=== PATIENT | female | born 1970 | race Caucasian/White ===

== ENCOUNTER 2016-08-01 09:51 | Day surgery (SDC) | payer BC ==
[2016-07-29 15:04] VITALS: BMI 21.3
[~2016-08-01 09:51] MED LIST: LACTATED RINGERS 1,000 ML IV SCH
[2016-08-01 10:51] VITALS: RESP 16; TEMP 97.5
[2016-08-01] MEDS ORDERED: LIDOCAINE 1% 20 ML VIAL (10MG/ML) FOR IV START INTRADERMA ONE (11:02)
[2016-08-01] MEDS ORDERED: PROPOFOL 10 MG/ML 20 ML VIAL IV ONE (12:15)
--- NOTE | 2016-08-01 12:26 | P.PCN ---
Date of Procedure: 08/01/16 Procedure(s) Performed: BRIEF HISTORY: Patient is a 46-year-old [place] female, scheduled for an elective colonoscopy as a part of evaluation of intermittent rectal bleeding for the last 1 month duration. PROCEDURE PERFORMED: Colonoscopy. PREOPERATIVE DIAGNOSIS: Intermittent rectal bleeding. IV sedation per Anesthesia. PROCEDURE: After informed consent was obtained, the patient, was brought into the endoscopy unit. IV conscious sedation was administered by Anesthesia under continuous monitoring. Digital rectal examination was normal. Initially the Olympus CF-160 flexible video colonoscope was then inserted in the rectum, gradually advanced into the cecum without any difficulty. Careful examination was performed as the scope was gradually being withdrawn. Ileocecal valve and the appendiceal orifice were visualized and appeared normal. Prep was excellent. Mucosa of the cecum, ascending colon, transverse colon, descending colon, sigmoid colon, and rectum appeared normal. Retroflexion was performed in the rectum and no lesions were seen. The patient tolerated the procedure well. IMPRESSION: Normal-appearing colon from rectum to cecum with no evidence of colorectal neoplasia. RECOMMENDATIONS: Findings of this examination were discussed with the patient as well as her family. She was advised to be a high-fiber diet and take fiber supplements on a regular basis. She can have a repeat screening colonoscopy in 10 years.
[2016-08-01 13:04] VITALS: BP 126/79; PULSE 78
== END 2016-08-01 13:31 | disposition home or self-care (01) ==
LOC: ORWHC2ENDO 09:51
PROVIDERS: ATTEND Internal Medicine Gastroenterology
DX: K62.5 Hemorrhage of anus and rectum (principal); R10.9 Unspecified abdominal pain; F41.9 Anxiety disorder, unspecified; Z88.0 Allergy status to penicillin; Z79.899 Other long term (current) drug therapy; Z87.891 Personal history of nicotine dependence
CPT/HCPCS: 81025; 45378; J2704